=== PATIENT | male | born 1965 | race Two or more races ===

== ENCOUNTER 2018-08-02 16:48 | Emergency (ER) | payer OTHER ==
[~2018-08-02] VITALS: Ht 175.3 cm; Wt 79.4 kg
[2018-08-02] MEDS ORDERED: PAXIL10 MG ORAL (17:00)
[2018-08-02 17:08] VITALS: BP 127/84
[2018-08-02] MEDS ORDERED: Bacitracin Oint UD TOPIC ONE (17:15)
[2018-08-02] MEDS ORDERED: Tetanus/Diptheria/Pertussis Vaccine 0.5ml Syr IM ONE (17:15)
[2018-08-02] MEDS ORDERED: IBUPROFEN600 MG ORAL (17:24)
[2018-08-02] MEDS ORDERED: BACTRIM DS TAB1 EAC1 ORAL (17:24)
--- NOTE | 2018-08-02 17:25 | Emergency Room Report ---
History of Present Illness General Chief Complaint: Upper Extremity Injury Source: Patient Present Illness HPI 52-year-old male patient presents to ER complaining of puncture injury while at work. Reports that he was working on a sink at work when he got poked by a piece of metal on his left hand middle finger 2 days ago. Reports he is right- hand dominant. Reports injury occurred on his nailbed. Reports pain and swelling in distal fingertip. Reports able to move finger. Denies fever, chest pain, shortness breath, abdominal pain. Denies history of diabetes. reports that he soak the finger and drained it yesterday at home and blood came out. states last tetanus was over 5 years ago, unsure exactly how many years. Allergies: Coded Allergies: CODEINE (Verified Allergy, Unknown, 08/02/18) rash Patient History Past Medical History: see triage record Reviewed Nursing Documentation: PMH: Agreed; PSxH: Agreed Nursing Documentation-PMH Past Medical History: No History, Except For History Of Psychiatric Problem: Yes - depression Review of Systems All Other Systems: negative except mentioned in HPI Physical Exam Vital Signs Date Time Temp Pulse Resp B/P (MAP) Pulse Ox O2 Delivery O2 Flow Rate FiO2 08/02/18 16:56 98.1 75 16 127/84 95 Room Air 98.1 Sp02 EP Interpretation: reviewed, normal General Appearance: well appearing, no apparent distress, alert, GCS 15, non- toxic Head: normocephalic, atraumatic Eyes: bilateral eye normal inspection, bilateral eye PERRL ENT: hearing grossly normal, normal pharynx, no angioedema, normal voice, uvula midline, moist mucus membranes Neck: full range of motion Respiratory: lungs clear, normal breath sounds, no rhonchi, no respiratory distress, no accessory muscle use, no wheezing, speaking full sentences Cardiovascular #1: regular rate, rhythm, no edema Cardiovascular #2: 2+ radial (R), 2+ radial (L) Musculoskeletal: back normal, digits/nails normal, gait/station normal, normal range of motion, swelling - distal phalanx of the left hand middle finger, other - no subungual hematoma, nailbed and cuticle intact, tender - distal phalanx of the left hand middle finger Psychiatric: mood/affect normal Skin: other - left-hand middle finger: swelling and erythema noted on the palmar aspect of distal phalanx, no fluctuance or induration, erythema and mild edema noted on lateral radial side nail bed, dried blood noted near her nailbed, no active drainage, unable to express pus; no fusiform swelling or erythema of the entire digit Medical Decision Making PA Attestation Dr. Conrad is my supervising Physician whom patient management has been discussed with. Diagnostic Impression: Primary Impression: Paronychia Additional Impression: Felon ER Course Pt. presents to the ED c/o puncture wound on finger. Ddx considered but are not limited to rash, cellulitis, abscess, felon, paronychia, hangnail, herpetic anita. No erythema, no warmth to touch, no fever, nontoxic appearing, low suspicion for septic joint. no TTP over flexor tendon, or swelling, able to flex and extend finger without difficulty, low suspicion for flexor tenosynovitis at this time. Vital signs: are WNL, pt. is afebrile ED COURSE: Provided with TDAP in ER. physical exam, consistent with obvious paronychia and felon, attempted to express pus while in the ER, none expressed. Do not believe patient requires incision and drainage at this time, dried blood noted on physical exam consistent with patient history of draining yesterday. Consult with Dr. Conrad , patient seen and evaluated by Dr. Conrad, will provide antibiotics and recommended close outpatient follow-up, return to the ER in 2 days for wound check to determine need for further incision and drainage at that time. Finger cleaned and dressed in the ER, cleaned with Betadine and saline with copious amounts of irrigation. Full range of motion in ER, sensation intact to touch, does not require imaging at this time, low suspicion for fracture. Contact information for hand specialist, follow up with him, call schedule appointment. Sterile dressing and Bacitracin applied to wound following procedure. Patient instructed to keep wound clean and dry and to follow-up with primary care provider in 2 days for wound check. Completed Workmen's compensation paperwork. DISCHARGE -Rx provided for Bactrim -Rx provided for Ibuprofen At this time pt. is stable for d/c to home. Patient resting comfortably, in no acute distress, nontoxic appearing, laughing and smiling. Will provide printed patient care instructions and any necessary prescriptions. Care plan and follow up instructions have been discussed with the patient prior to discharge. Patient instructed to follow-up with primary care provider in 2 - 3 days for wound recheck. Patient questions asked and answered. Patient reports understanding and agreement to treatment plan. ER precautions given. Patient instructed to return to ER immediately for any new or worsening of symptoms including but not limited to fever, worsening of pain symptoms, worsening of erythema, red streaking. - Please note that this Emergency Department Report was dictated using [employer] driver technology software, occasionally this can lead to erroneous entry secondary to interpretation by the dictation equipment. Last Vital Signs Date Time Temp Pulse Resp B/P (MAP) Pulse Ox O2 Delivery O2 Flow Rate FiO2 08/02/18 17:08 98.1 88 16 127/84 95 Room Air 98.1 Disposition: HOME, SELF-CARE Condition: Stable Scripts Ibuprofen* (MOTRIN*) 600 Mg Tablet 600 MG ORAL Q8H PRN for For Pain, #30 TAB 0 Refills Prov: Drake Wilson 08/02/18 Trimethoprim/Sulfamethoxazole 160/800* (BACTRIM DS TABLET*) 1 Each Tablet 1 TAB ORAL TWICE A DAY for 7 Days, #14 TAB Prov: Drake Wilson 08/02/18 Patient Instructions: Fingertip Infection, Paronychia, [id number] Additional Instructions: Return to ER in 2 days for wound check. Followup with primary care provider in 3 -5 days. discuss referral to a hand specialist. Take medications as directed. Patient questions asked and answered. ER precautions given, patient instructed to return to ER immediately for any new or worsening of symptoms. Drake Wilson Aug 02, 2018 17:25
[2018-08-02 17:33] VITALS: BP 127/84
== END 2018-08-02 17:33 | disposition home or self-care (01) ==
LOC: EMR 17:29
DX: L03.012 Cellulitis of left finger (principal); B96.89 Other specified bacterial agents as the cause of diseases classified elsewhere; Z23 Encounter for immunization; Z88.8 Allergy status to other drugs, medicaments and biological substances
CPT/HCPCS: 90471; 90715; 99283